=== PATIENT | female | born 1990 | race Asian ===

== ENCOUNTER 2021-12-13 19:30 | Emergency (ER) | payer OTHER ==
[2021-12-13] MEDS ORDERED: AMOX/CLAV 875 MG/125 MG TABLET PO STA (21:00)
--- NOTE | 2021-12-13 21:05 | ED Physician Documentation ---
PD HPI OPHTHO - Stated complaint Stated Complaint: R EYE PX - Chief complaint Chief Complaint: Heent - History obtained from History obtained from: Patient - Additional information Additional information: Patient presenting for evaluation of right lower eyelid redness and swelling that is been present for 3 days and worsening. Patient does have a history of styes and this feels similar. She does not wear contacts or glasses and reports no changes to her vision. She denies concerns for foreign body.She has been using warm compresses to the eye 3-4 times a day without improvement. She does not currently have an dry cell tester. Review of Systems Constitutional: denies: Fever Eyes: denies: Decreased vision Nose: denies: Congestion Cardiac: denies: Chest pain / pressure Respiratory: denies: Dyspnea GI: denies: Abdominal Pain : denies: Dysuria Musculoskeletal: denies: Back pain Neurologic: denies: Headache PD PAST MEDICAL HISTORY - Past Medical History Past Medical History: No - Past Surgical History Past Surgical History: No - Present Medications Home Medications: Ambulatory Orders Medication Instructions Recorded Confirmed Amox/Clav 875/125 [Augmentin] 1 each PO Q12H #20 tablet 12/13/21 - Allergies Allergies/Adverse Reactions: Allergies Allergy/AdvReac Type Severity Reaction Status Date / Time No Known Drug Allergies Allergy Verified 12/13/21 19:46 - Social History Does the pt smoke?: No Smoking Status: Never smoker Does the pt drink ETOH?: No Does the pt have substance abuse?: No - Immunizations Immunizations are current?: Yes PD ED PE NORMAL - General General: Alert and oriented X 3, No acute distress, Well developed/nourished - HEENT HEENT: Atraumatic, PERRL, EOMI, Moist mucous membranes, Pharynx benign - Neck Neck: Supple, no meningeal sign - Respiratory Respiratory: No respiratory distress - Neuro Neuro: Normal speech PD ED PE EXPANDED - HEENT HEENT Visual: 1 - swelling (Hordeolum) - Eyes Eyes: PERRL, EOMI, Eyelid swelling (Right lower), Eyelid erythema, No eyelid FB (everted), Nl conjunctiva/sclera, Normal corneas, Anterior chambers clear, Other (External hordeolum to her right lower lid). No: Subconj hemorrhage Results - Vitals Vitals: Vital Signs - 24 hr 12/13/21 12/13/21 19:46 21:16 Temperature 36.5 C 36.5 C Heart Rate 70 72 Respiratory 16 16 Rate Blood Pressure 130/86 H 122/79 O2 Saturation 100 99 Oxygen O2 Source Room air PD MEDICAL DECISION MAKING - ED course ED course: Patient with right lower eyelid swelling and erythema with external hordeolum.Visual acuity intact. No pain with extraocular movements. EOMI. Patient is well-appearing and nontoxic. Patient does have significant swelling and erythema related to the stye. Discussed that it may need to be lanced but would recommend having an dry cell tester do this. Given the redness and swelling surrounding it will start on Augmentin for possible preseptal cellulitis. Encouraged her to call Dr. Alex in the morning for close follow- up and to return to the emergency department with any worsening symptoms. Departure - Departure Disposition: 01 Home, Self Care Clinical Impression: Preseptal cellulitis of right lower eyelid Hordeolum, external Qualifiers: Laterality: right Eyelid: lower Qualified Code(s): H00.012 - Hordeolum externum right lower eyelid Condition: Stable Instructions: ED Hordeolum Follow-Up: Christiano Alex MD [Provider Admit Priv/Credential] - Prescriptions: Amox/Clav 875/125 [Augmentin] 1 each PO Q12H #20 tablet Comments: You were evaluated for swelling and redness to your right lower eyelid which appears to be consistent with a stye (Hordeolum). As it has not been improving with warm compresses, you may need to have it drained which should be done by an dry cell tester. I have included the name of Dr. Alex in your discharge papers. Please give Dr. Alex a call at [facility] in the morning for close follow-up.Due to the swelling and redness I am concerned that there may also be an infection to the skin and have started you on Augmentin. We have given you the first dose tonight and I will send the prescription to [facility] in [place].Please continue to use the warm compresses 3-4 times a day. If you have any changes to your vision or if the swelling/redness/pain worsens before you are able to see the dry cell tester then consider return to the emergency department. Discharge Date/Time: 12/13/21 21:16
[2021-12-13 21:17] VITALS: BP 122/79
== END 2021-12-13 21:16 | disposition home or self-care (01) ==
LOC: ED 19:30
DX: H00.012 Hordeolum externum right lower eyelid (principal)
CPT/HCPCS: 99282; A9270